=== PATIENT | male | born 1965 | race Caucasian/White ===

== ENCOUNTER 2024-12-26 13:55 | Outpatient (AMB) | payer MEDICAID, SELFPAY ==
[2024-12-26 14:32] VITALS: BP 125/70; PULSE 105; RESP 19; TEMP 36.8; O2SAT 96; BMI 30.7
--- NOTE | 2024-12-26 14:32 | PD.ORTHCLVIS ---
Vital signs 12/26/24 14:32 Height 1.89 m Height Method Stated Weight 109.769 kg Weight Measurement Method Stated by Patient BMI 30.7 BP 125/70 Blood Pressure Source Automatic Cuff Blood Pressure Location Right Upper Arm Position Sitting Respiration 19 Pulse 105 H Pulse Source Monitor Temp 98.3 F Temp Source Temporal Artery Scan Pulse Oximetry (%) 96 Oxygen Delivery Method Room Air Med/Allergies Allergies & Medications Allergies No Known Allergies Allergy (Verified 12/26/24 14:34) Medication Reconciliation gabapentin 300 mg capsule 300 mg PO QDAY 12/26/24 [History Confirmed 12/26/24] hydrocodone 5 mg-acetaminophen 325 mg tablet 1 tab PO BID PRN 12/26/24 [History Confirmed 12/26/24] meloxicam 15 mg tablet 15 mg PO QDAY 12/26/24 [History Confirmed 12/26/24] Exam Exam Breathing is nonlabored. Patient has a normal mood and affect. Bilateral extremities were evaluated and demonstrates sensation intact to light touch. Palpable pedal pulses are present. No significant edema is present. Bilateral hips were examined. The patient has no pain with log roll of the hips. Internal rotation to 30 degrees and external rotation to 30 degrees is painless. Negative FADIR. Left knee was examined today. The left knee is in reasonable alignment. Range of motion from 0-120 degrees. Knee is stable to varus and valgus as well as AP translation with <5mm. Patient has a negative McMurrays. There is no pain with patellofemoral compression and no crepitus noted. The knee is nontender to palpation. The right knee was also examined. The right knee is in varus alignment. Range of motion from 0-115 degrees. Knee is stable to varus and valgus as well as AP translation with <5mm. Patient has a negative McMurrays. There is no pain with patellofemoral compression and no crepitus noted. The knee is tender to palpation medially. Assessment and Plan Problem List (1) Pain in right knee: Status: Acute Plan: Patient is a 59-year-old male who has been wheelchair-bound for the last month. He has significant right knee arthritis but does not have any new x-rays. We will obtain weightbearing x-rays to better evaluate this. In addition, he has been to the ER in the past for right back pain. We will get an MRI to better evaluate this but the prior CT scan demonstrates that there is release moderate central canal stenosis. We will see him back after his imaging including his MRI (2) Spinal stenosis: Status: Acute Office Procedures GNS Level of Care Nursing/Assessment Patient Status: Initial/New Patient Nursing Assessment/Reassesment: Medication Reconciliation, Update PMH in EMR and Vital Signs Coordination of Care: Complex Care/Chronic Disease 5 or more, Education Complex Pt/Fam, Consent,records obtained, informed consent, Results/Orders obtained and Staff clarify orders New Patient Charge New Patient Point Assignment: 1104 New Patient Point Charge: DEPUTY ADMINISTRATOR Level 3 (0637-2128) [place] Intake Visit Data Collection New Patient or Established: New Patient (never been to [facility]) Reason for Visit:: RIGHT KNEE PAIN Eligibility Specialist Required: Yes Eligibility Specialist's name/title: RYAN CASEY MA Do You Feel Safe at Home: Yes Questionairres Past Medical History Past Medical History Have you ever been diagnosed with any of the following: Surgical History Appendectomy: Yes Subjective Immunization / Flu Flu Vaccine in the Last 12 Months: Yes Flu Vaccine Exclusion Criteria: Already Received History of Present Illness Chief complaint: Right knee and left back pain Patient is a 69-year-old male with a longstanding history of right knee pain that has worsened in the last month. He also reports that he has significant low back pain. He went to the ER several times and is on [place] and meloxicam. He reports That he has not tried any conservative treatment including any injections. We do not have any x-rays to review today. He has been in a wheelchair for the last month Review of Systems Review of Systems: All systems negative unless otherwise noted in HPI.
--- NOTE | 2024-12-26 14:54 | XR_ITS ---
Examination: Lumbar spine 3 views Technique one AP lateral coned lateral lower lumbar spine 3 views Exam date 9: October 28, 2024 1545 hours INDICATIONS: Low back pain radiating to the right leg 6 months FINDINGS: Moderate osteopenia No acute lumbar fracture Advanced degenerative disc disease L5-S1 with cortical erosions inferior endplate L5 superior endplate S1 Moderate lumbar spondylosis IMPRESSION: Advanced disc disease L5-S1 Suspicious for osteomyelitis discitis at the L5-S1 level, consider MRI lumbar spine pre and post contrast follow-up
--- NOTE | 2024-12-26 14:54 | XR_ITS ---
Examination: Bilateral knees 2 views AP oblique axial right knee 3 views TECHNIQUE: Bilateral AP knees standing single view, bilateral PA knees standing flexion single view Lateral oblique axial right knee 3 views total 5 views Exam date and time: January 25, 2025 1524 hours INDICATIONS: Chronic knee pain and swelling FINDINGS: Prominent osteopenia Severe narrowing [id number] medial joint spaces bilaterally Significant osteoarthritis lateral joint spaces Advanced narrowing right patellofemoral joint with chronic 10 mm lateral subluxation right patella IMPRESSION: Advanced osteoarthritis as above
--- NOTE | 2024-12-26 14:54 | XR_ITS ---
Examination:Left hip AP, lateral, AP pelvis 3 views Technique: Hip AP lateral, AP pelvis, 3 views Exam date and time:December 26, 2024 1542 hours INDICATIONS: Chronic left hip swelling and pain months FINDINGS: Moderate narrowing left hip joint No left hip fracture or dislocation Mild to moderate narrowing right hip joint Bones of the pelvis intact IMPRESSION: No acute hip or pelvic fracture Moderate narrowing left hip joint.
== END 2024-12-26 15:00 | disposition home or self-care (01) ==
LOC: HODSRG 13:55
PROVIDERS: PCP Physician Assistant; Referring Provider Physician Assistant; Supervising Provider Orthopaedic Surgery Adult Reconstructive Orthopaedic Surgery; Visit Provider Orthopaedic Surgery Adult Reconstructive Orthopaedic Surgery
DX: M25.561 Pain in right knee (principal); M17.11 Unilateral primary osteoarthritis, right knee; M48.00 Spinal stenosis, site unspecified; M25.852 Other specified joint disorders, left hip
CPT/HCPCS: 72100; 73502; 73564; 99203; G0463

== ENCOUNTER → 2025-01-05 | Outpatient (CLI) | payer MEDICAID, SELFPAY ==
--- NOTE | 2025-01-05 12:30 | XR_ITS ---
Examination: MRI lumbar spine without contrast Date and time of exam: January 05, 2025 1233 hours INDICATIONS: Low back pain beginning one year ago pain with walking Technique: Multiple MRI axial and sagittal sections lumbar spine. Sagittal T2-weighted images, TR 3500, TE 118 T1 weighted transverse sections, TR 688 T8.5, T2-weighted sagittal sections T1 weighted sagittal sections TR 621, TE 30 T2 axial sections, TR 4, 190, TE 84. Findings: Advanced disc narrowing L5-S1 L5 vertebral body and S1 vertebral body show abnormal signal especially L5 No acute lumbar fracture Diffuse lumbar disc desiccation L5-S1 5 mm central lumbar disc bulge extending to the foraminal regions with moderate bilateral L5 ganglionic compression L4-L5 4 mm central lumbar disc bulge More cephalad levels unremarkable IMPRESSION: This patient should return for MRI lumbar spine images post intravenous contrast to confirm osteomyelitis discitis at the L5-S1 level Spinal stenosis as above
== END | disposition home or self-care (01) ==
LOC: SMRI 11:52
PROVIDERS: Referring Provider Orthopaedic Surgery Adult Reconstructive Orthopaedic Surgery; Visit Provider Orthopaedic Surgery Adult Reconstructive Orthopaedic Surgery
DX: M46.27 Osteomyelitis of vertebra, lumbosacral region (principal); M46.46 Discitis, unspecified, lumbar region; M48.07 Spinal stenosis, lumbosacral region
CPT/HCPCS: 72148

== ENCOUNTER 2025-01-07 21:14 | Emergency (ER) | payer MEDICAID, SELFPAY ==
[2025-01-07 21:16] VITALS: BMI 29.8
[2025-01-07 21:28] VITALS: BP 123/66; PULSE 97; RESP 18; TEMP 36.9; O2SAT 95
--- NOTE | 2025-01-07 21:41 | PD.EDBACK ---
ED Back Injury Pain RME/HPI General Chief Complaint: Back Pain/Injury Stated Complaint: joint and back pain Time Seen by Provider: 01/07/25 21:19 Source: patient, family, RN notes reviewed and old records reviewed Arrival date/time: 01/07/25 21:14 Mode of arrival: wheelchair Limitations: no limitations RME / HPI RME / HPI Narrative: 59yom presents to ED for left lower back/hip pain and right knee pain x2 months. No recent fall or injury. 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 Patient has been evaluated in multiple EDs for same complaint. Patient had f/u with Dr. Salcedo on 12/26. MRI l-spine done (patient gets results next Thursday) and repeat knee xrays showing OA. Plan is for R TKR in near future. No LE weakness, numbness/tingling or bowel/bladder incontinence reported. Patient has been taking mobic and norco but ran out of medications. Related Data Home Medications ?Medication ?Instructions ?Recorded ?Confirmed gabapentin 300 mg capsule 300 mg PO QDAY 12/26/24 12/26/24 hydrocodone 5 mg-acetaminophen 325 1 tab PO BID PRN 12/26/24 12/26/24 mg tablet meloxicam 15 mg tablet 15 mg PO QDAY 12/26/24 12/26/24 Previous Rx's ?Medication ?Instructions ?Recorded acetaminophen 500 mg tablet 1,000 mg (2 x 500 mg) PO Q6H PRN 01/07/25 (Tylenol Extra Strength) pain #60 tabs ketorolac 10 mg tablet 10 mg PO Q6H PRN pain #30 tabs 01/07/25 lidocaine 5 % topical patch 1 patch topical QDAY PRN pain #15 01/07/25 ea methocarbamol 500 mg tablet 1,000 mg (2 x 500 mg) PO Q8H PRN 01/07/25 pain #30 tabs Allergies Allergy/AdvReac Type Severity Reaction Status Date / Time No Known Allergies Allergy Verified 01/07/25 21:23 Review of Systems Review of Systems Systems Reviewed: All systems reviewed, normal except as documented Constitutional Constitutional: Denies chills and Denies fever(s) Gastrointestinal Gastrointestinal: Denies abdominal pain, Denies fecal incontinence, Denies nausea and Denies vomiting Genitourinary Genitourinary: Denies urinary incontinence Musculoskeletal Musculoskeletal: Reports arthralgias, Reports back pain, Denies deformity, Reports joint swelling, Reports limited range of motion, Denies numbness and Denies tingling Neurologic Neurologic: Denies localized weakness, Denies numbness and Denies tingling Past Medical History Surgical History OTHER SURGICAL HX: Right inguinal hernia repair Social History SMOKING STATUS: Never smoker SUBSTANCE USE: does not use ALCOHOL: Never Past Medical History Comments PMH COMMENT: Osteoarthritis ED Exam General Limitations: Present no limitations General appearance: Present alert and in no apparent distress Head Head exam: Present atraumatic and normocephalic Eye Eye exam: Present normal appearance, PERRL and EOMI ENT ENT exam: Present normal exam and mucous membranes moist Neck Neck exam: Present normal inspection and full ROM Chest Chest inspection: Present normal inspection and symmetric chest wall rise Respiratory Respiratory exam: Present normal lung sounds bilaterally; Absent respiratory distress Cardiovascular Cardiovascular exam: Present regular rate and normal rhythm Extremities Exam Extremities exam: Present other (R knee tenderness, mild swelling. Limited ROM 2/2 pain. DP pulses and sensation intact. Mild BLE edema) Back Exam Back exam: Present paraspinal tenderness (left lumbar); Absent vertebral tenderness Neurological Exam Neurological exam: Present alert, oriented X3 and other (No saddle anesthesia); Absent motor sensory deficit Psychiatric Psychiatric exam: Present normal affect and normal mood Skin Skin exam: Present warm, dry, intact and normal color Course Quality Measures none Orders Category Date Time Status Dexamethasone Inj [Decadron Inj] Med 01/07/25 22:31 Discontinued 10 mg IM X1 ONE HYDROcodone/APAP 10/325 [Roy 10/325] Med 01/07/25 21:42 Discontinued 1 tab PO X1 ONE Ketorolac Inj [Toradol Inj] Med 01/07/25 21:42 Discontinued 30 mg IM X1 ONE Vital Signs Vital signs: Vital Signs Temperature 98.5 F 01/07/25 21:28 Pulse Rate 97 01/07/25 21:28 Respiratory Rate 18 01/07/25 21:28 Blood Pressure 123/66 01/07/25 21:28 Pulse Oximetry (%) 95 01/07/25 21:28 Oxygen Delivery Method Room Air 01/07/25 21:28 Back Pain / Injury MDM Narrative MDM Narrative:: 59yom presents to ED for left lower back/hip pain and right knee pain x2 months. No recent fall or injury. 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 Patient has been evaluated in multiple EDs for same complaint. Patient had f/u with Dr. Salcedo on 12/26. MRI l-spine done (patient gets results next Thursday) and repeat knee xrays showing OA. Plan is for R TKR in near future. No LE weakness, numbness/tingling or bowel/bladder incontinence reported. Patient has been taking mobic and norco but ran out of medications. Patient is neurovascularly intact. Encouraged f/u with Dr. Salcedo as scheduled, appt is in 3 days. Recommended rest, nsaid, muscle relaxer, ice/heat application prn. Compression stockings for mild BLE edema. Stable for dc, RTED precautions given. Patient data External records reviewed:: Other (specify) (Ortho clinic visit 12/26/24 for right knee pain) Clinical information provided by:: patient and spouse Social determinants that could affect healthcare access:: none Patient has the following chronic illnesses:: OA How is presenting disease/condition affected by chronic disease/condition?: caused by Evaluation data The following diagnostics were reviewed and interpreted by me:: other (specify) (none) Lab and/or radiology exams considered but not ordered:: knee xrays: patient recently had imaging at ortho clinic Interpretation Summary: none Medications / Prescriptions Medications or Prescriptions considered but not ordered:: None Medication administrations:: Medication Administration History Discontinued Medications Hydrocodone Bitart/Acetaminophen (Hydrocodone/Apap 10/325 Tab) 1 tab PO X1 ONE Stop: 01/07/25 21:43 Last Admin: 01/07/25 22:36 Dose: 1 tab Documented By: JD Dexamethasone Sodium Phosphate (Dexamethasone Sod Phos Inj 10 Mg/Ml Vial) 10 mg IM X1 ONE Stop: 01/07/25 22:32 Last Admin: 01/07/25 22:36 Dose: 10 mg Documented By: JD Ketorolac Tromethamine (Ketorolac Inj 60 Mg/2 Ml Vial) 30 mg IM X1 ONE Stop: 01/07/25 21:43 Last Admin: 01/07/25 22:36 Dose: 30 mg Documented By: JD Above medications administered in ED Consultations Consultation(s) initiated? (list below): No Diagnosis Differential diagnosis back pain/injury: other (Chronic joint pain, gout, arthritis, osteoarthritis, septic joint, strain, sprain, contusion) Most likely diagnosis given after review of the tests above:: Arthralgias Admission Indicated Admission indicated?: not indicated Admission Request Was there a request for admission?: No Disposition Plan Disposition Plan: Discharge Discharge Attestation Discharge Attestation: The patient and all family members were given an opportunity to ask questions and understood the discharge instructions. Discharge instructions specifically effects, indications for sooner follow up or return to the emergency department, and the expected course of current diagnosis. Patient condition: Stable Discharge Plan Plan Patient Disposition: HOME (Self Care) Patient condition on transfer: Stable Prescriptions/Referrals Prescriptions/Med Rec: New ketorolac 10 mg tablet 10 mg PO Q6H PRN (Reason: pain) Qty: 30 0RF Rx Instructions: maximum total duration of 5 days from all oral, intranasal, or parenteral formulations methocarbamol 500 mg tablet 1,000 mg PO Q8H PRN (Reason: pain) Qty: 30 0RF acetaminophen [Tylenol Extra Strength] 500 mg tablet 1,000 mg PO Q6H PRN (Reason: pain) Qty: 60 0RF lidocaine 5 % adhesive patch,medicated 1 patch topical QDAY PRN (Reason: pain) Qty: 15 0RF Rx Instructions: leave on most painful area for up to 12 hrs No Action meloxicam 15 mg tablet 15 mg PO QDAY gabapentin 300 mg capsule 300 mg PO QDAY hydrocodone-acetaminophen 5-325 mg tablet 1 tab PO BID PRN Referrals: No Primary/Family,Physician [Primary Care Provider] - In 1 week David Salcedo MD [Physician] - 01/10/25 (as scheduled) Problem List Clinical Impression: Knee pain, right, Hip pain, left, Low back pain Patient/Caregiver Discharge Instructions Education Materials: ED Arthralgia Print Language: Algerian Stand Alone Forms: Seema Award Info., Patient Portal Info Letter PA/GABRIELLE Supervising Physician PA/GABRIELLE Supervising Physician: Evelyn
[2025-01-07] MEDS: HYDROcodone/APAP 10/325 TAB PO (22:36)
[2025-01-07] MEDS: DEXAMETHASONE SOD PHOS INJ 10 MG/ML VIAL IM (22:36)
[2025-01-07] MEDS: KETOROLAC INJ 60 MG/2 ML VIAL 30 MG IM (22:36)
== END 2025-01-07 23:13 | disposition home or self-care (01) ==
PROVIDERS: Emergency Provider Emergency Medicine
DX: M25.561 Pain in right knee (principal); M25.551 Pain in right hip
CPT/HCPCS: 96372; 99283; J1100; J1885; A9270

== ENCOUNTER 2025-01-10 12:55 | Outpatient (AMB) | payer MEDICAID, SELFPAY ==
[2025-01-10 13:09] VITALS: BP 122/63; PULSE 102; RESP 20; TEMP 36.7; O2SAT 93
--- NOTE | 2025-01-10 13:09 | ORTHONT_ITS ---
Vital signs 01/10/25 13:09 BP 122/63 Blood Pressure Source Automatic Cuff Blood Pressure Location Right Upper Arm Position Sitting Respiration 20 Pulse 102 H Pulse Source Monitor Temp 98.0 F Temp Source Temporal Artery Scan Pulse Oximetry (%) 93 L Oxygen Delivery Method Room Air Comment WHEELCHAIR BOUND Med/Allergies Allergies & Medications Allergies No Known Allergies Allergy (Verified 01/10/25 13:10) Medication Reconciliation gabapentin 300 mg capsule 300 mg PO QDAY 12/26/24 [History Confirmed 01/10/25] hydrocodone 5 mg-acetaminophen 325 mg tablet 1 tab PO BID PRN 12/26/24 [History Confirmed 01/10/25] meloxicam 15 mg tablet 15 mg PO QDAY 12/26/24 [History Confirmed 01/10/25] acetaminophen 500 mg tablet (Tylenol Extra Strength) 1,000 mg (2 x 500 mg) PO Q6H PRN pain #60 tabs 01/07/25 [Rx Confirmed 01/10/25] ketorolac 10 mg tablet 10 mg PO Q6H PRN pain #30 tabs 01/07/25 [Rx Confirmed ] lidocaine 5 % topical patch 1 patch topical QDAY PRN pain #15 ea 01/07/25 [Rx Confirmed 01/10/25] methocarbamol 500 mg tablet 1,000 mg (2 x 500 mg) PO Q8H PRN pain #30 tabs 01/07/25 [Rx Confirmed 01/10/25] Exam Exam Breathing is nonlabored. Patient has a normal mood and affect. Bilateral extremities were evaluated and demonstrates sensation intact to light touch. Palpable pedal pulses are present. No significant edema is present. Bilateral hips were examined. The patient has no pain with log roll of the hips. Internal rotation to 30 degrees and external rotation to 30 degrees is painless. Negative FADIR. Left knee was examined today. The left knee is in reasonable alignment. Range of motion from 0-120 degrees. Knee is stable to varus and valgus as well as AP translation with <5mm. Patient has a negative McMurrays. There is no pain with patellofemoral compression and no crepitus noted. The knee is nontender to palpa tion. The right knee was also examined. The right knee is in varus alignment. Range of motion from 0-115 degrees. Knee is stable to varus and valgus as well as AP translation with <5mm. Patient has a negative McMurrays. There is no pain with patellofemoral compression and no crepitus noted. The knee is tender to palpation medially. He is in a wheelchair because of the back pain. MRI of the lumbar spine demonstrates significant spinal stenosis at multiple levels. Xrays demonstrate bilateral knee arthritis Assessment and Plan Problem List (1) Spinal stenosis: Status: Acute (2) Pain in right knee: Status: Acute Plan: Patient is a 59-year-old male who has been wheelchair-bound for the last month. He has significant Bilateral knee arthritis. We suspect that he has severe spinal stenosis and we will an MRI which confirms that he has multiple levels of critical canal stenosis. We discussed warning signs including urinary and bowel incontinence as far as further weakness. I am actually very much concerned regarding his spine. He is now in a wheelchair and is progressively getting weaker. He will need a referral to a spine surgeon. We have contacted his primary care provider already to let them know that he has severe critical canal stenosis and he will likely need spine surgery. We can address his knee after his spine is done. He reports his knee pain is not nothing compared to his spine He has been to the ER multiple times in the past for his back pain. We discussed we could do a cortisone injection but that his back is actually the most pressing issue right now as she has had multiple ER This is back and is causing him to be wheelchair-bound. Office Procedures GNS Level of Care Nursing/Assessment Patient Status: Established Patient Nursing Assessment/Reassesment: Medication Reconciliation, Update PMH in EMR and Vital Signs Coordination of Care: Complex Care and Chronic Disease 1-5, Education Complex Pt/Fam, Consent,records obtained, informed consent, Results/Orders obtained and Staff clarify orders Special Needs: Language special needs Established Patient Charge Established Patient Point Assignment: 95 Established Patient Point Charge: EP Level 3 (80-115) MA Intake Visit Data Collection New Patient or Established: Established Patient (seen at [facility] within 3 years) Reason for Visit:: F/U XRAYS & MRI Seen by Clinical Staff ONLY (RN/MA): No Verbal consent obtained for Telemed visit?: No Control Panel Operator Crude Unit Required: No PCP or OBGYN visit in last 3 months: Yes Hx Now: No Do You Feel Safe at Home: Yes Authorities Contacted: N/A Questionairres Past Medical History Past Medical History Have you ever been diagnosed with any of the following: Surgical History Appendectomy: Yes Subjective Visit Visit for: follow up visit and x-rays Immunization / Flu Flu Vaccine in the Last 12 Months: No Flu Vaccine Exclusion Criteria: No Exclusion Criteria History of Present Illness Chief complaint: F/U XRAYS & MRI Patient is a 69-year-old male with a longstanding history of right knee pain that has worsened in the last month. He also reports that he has significant low back pain. He went to the ER several times and is on [place] and meloxicam. He reports That he has not tried any conservative treatment including any injections. He has been in a wheelchair for the last month. Personal History Occupation: DISABLED BMI Counceling provided: No Pain Pain level (0-10): 10 Pain duration: ALL DAY Pain location: posterior Pain quality: sharp Pain timing: night, increases with activity and stairs Ambulatory data Ambulatory device: none Treatments Improvement with previous injections: No Improvement with PT: No Improvement with NSAIDS: no Review of Systems Review of Systems: All systems negative unless otherwise noted in HPI.
== END 2025-01-10 13:38 | disposition home or self-care (01) ==
LOC: HODSRG 12:55
PROVIDERS: PCP Physician Assistant; Referring Provider Physician Assistant; Supervising Provider Orthopaedic Surgery Adult Reconstructive Orthopaedic Surgery; Visit Provider Orthopaedic Surgery Adult Reconstructive Orthopaedic Surgery
DX: M17.0 Bilateral primary osteoarthritis of knee (principal); M48.061 Spinal stenosis, lumbar region without neurogenic claudication; Z99.3 Dependence on wheelchair; M25.561 Pain in right knee
CPT/HCPCS: 99213; G0463

== ENCOUNTER 2025-05-04 13:50 | Outpatient (AMB) | payer MEDICAID, SELFPAY ==
--- NOTE | 2025-05-04 14:11 | ORTHONT_ITS ---
Vital signs 05/04/25 14:14 Height 1.89 m Height Method Stated Weight 89.046 kg Weight Measurement Method Standing Scale BMI 24.9 BP 125/77 Blood Pressure Source Automatic Cuff Blood Pressure Location Left Upper Arm Position Sitting Respiration 18 Pulse 79 Pulse Source Monitor Temp 96.9 F Temp Source Temporal Artery Scan Pulse Oximetry (%) 96 Oxygen Delivery Method Room Air Med/Allergies Allergies & Medications Allergies No Known Allergies Allergy (Verified 05/04/25 14:15) Medication Reconciliation gabapentin 300 mg capsule 300 mg PO QDAY 12/26/24 [History Confirmed 05/04/25] hydrocodone 5 mg-acetaminophen 325 mg tablet 1 tab PO BID PRN 12/26/24 [History Confirmed 05/04/25] meloxicam 15 mg tablet 15 mg PO QDAY 12/26/24 [History Confirmed 05/04/25] acetaminophen 500 mg tablet (Tylenol Extra Strength) 1,000 mg (2 x 500 mg) PO Q6H PRN pain #60 tabs 01/07/25 [Rx Confirmed 05/04/25] ketorolac 10 mg tablet 10 mg PO Q6H PRN pain #30 tabs 01/07/25 [Rx Confirmed 05/04/25] lidocaine 5 % topical patch 1 patch topical QDAY PRN pain #15 ea 01/07/25 [Rx Confirmed 05/04/25] methocarbamol 500 mg tablet 1,000 mg (2 x 500 mg) PO Q8H PRN pain #30 tabs 01/07/25 [Rx Confirmed 05/04/25] Exam Exam Breathing is nonlabored. Patient has a normal mood and affect. Bilateral extremities were evaluated and demonstrates sensation intact to light touch. Palpable pedal pulses are present. No significant edema is present. Bilateral hips were examined. The patient has no pain with log roll of the hips. Internal rotation to 30 degrees and external rotation to 30 degrees is painless. Negative FADIR. Left knee was examined today. The left knee is in reasonable alignment. Range of motion from 0-120 degrees. Knee is stable to varus and valgus as well as AP translation with <5mm. Patient has a negative McMurrays. There is no pain with patellofemoral compression and no crepitus noted. The knee is nontender to palpation. The right knee was also examined. The right knee is in varus alignment. Range of motion from 0-115 degrees. Knee is stable to varus and valgus as well as AP translation with <5mm. Patient has a negative McMurrays. There is no pain with patellofemoral compression and no crepitus noted. The knee is tender to palpation medially. He is in a wheelchair because of the back pain. MRI of the lumbar spine demonstrates significant spinal stenosis at multiple levels. Xrays demonstrate bilateral knee arthritis Assessment and Plan Problem List (1) Spinal stenosis: Status: Acute (2) Pain in right knee: Status: Acute Plan: Patient is a 59-year-old male who has significant bilateral knee pain. Recommend knee cortisone injection as patient would like to proceed with conservative treatment at this time. The risks and benefits of the procedure were reviewed with the patient and patient gave verbal consent to continue with the procedure. Procedure: performed by Dr. Salcedo Using sterile technique the left knee was thoroughly prepped with alcohol, and approximately 1 cc of Depo-Medrol 80mg/mL and 4 cc of 0.2% ropivacaine was injected without resistance into the medial tibial femoral joint space. The patient tolerated the procedure. Recommend knee cortisone injection as patient would like to proceed with conservative treatment at this time. The risks and benefits of the procedure we re reviewed with the patient and patient gave verbal consent to continue with the procedure. Procedure: performed by Dr. Salcedo Using sterile technique the Right knee was thoroughly prepped with alcohol, and approximately 1 cc of Depo-Medrol 80mg/mL and 4 cc of 0.2% ropivacaine was injected without resistance into the medial tibial femoral joint space. The patient tolerated the procedure. Office Procedures GNS Level of Care Nursing/Assessment Patient Status: Established Patient Nursing Assessment/Reassesment: Medication Reconciliation, Update PMH in EMR and Vital Signs Coordination of Care: Complex Care and Chronic Disease 1-5, Education Complex Pt/Fam, Consent,records obtained, informed consent, Results/Orders obtained and Staff clarify orders Special Needs: Language special needs Established Patient Charge Established Patient Point Assignment: 95 Established Patient Point Charge: EP Level 3 (80-115) Medication Given Medication Given Medication Given: No Documented Dose Given: 1 Route: Infiitration Medication Given Medication Given Medication Given: Yes Documented Dose Given: 1 Route: Infiitration Medication Given Medication Given Medication Given: Yes Documented Dose Given: 4 Route: Infiitration Medication Given Medication Given Medication Given: Yes Documented Dose Given: 4 Route: Infiitration Office Meds methylprednisolone acetate 80 mg/mL suspension for injection Performing Provider: David Salcedo MD Performing Location: [facility] Administered by: David Salcedo MD on 05/04/25 14:39 Dose Route Admin Location Dispensed Lot Number Expiration Date [facility] [employer] 80 mg intra-articular 1 mL [id number] 02/10/27 [address]-5 [employer] methylprednisolone acetate 80 mg/mL suspension for injection Performing Provider: David Salcedo MD Performing Location: [facility] Administered by: David Salcedo MD on 05/04/25 14:39 Dose Route Admin Location Dispensed Lot Number Expiration Date [facility] [employer] 80 mg intra-articular 1 mL [id number] 02/10/27 [address]-1 [employer] ropivacaine (PF) 2 mg/mL (0.2 %) injection solution Performing Provider: David Salcedo MD Performing Location: [facility] Administered by: David Salcedo MD on 05/04/25 14:39 Dose Route Admin Location Dispensed Lot Number Expiration Date [facility] [employer] 20 mL Infiltration 20 mL [id number] 07/13/26 62765-442-46 [facility] ropivacaine (PF) 2 mg/mL (0.2 %) injection solution Performing Provider: David Salcedo MD Performing Location: [facility] Administered by: David Salcedo MD on 05/04/25 14:39 Dose Route Admin Location Dispensed Lot Number Expiration Date [facility] [employer] 20 mL Infiltration 20 mL [id number] 07/13/26 39026-750-39 [facility] [place] Intake Visit Data Collection New Patient or Established: Established Patient (seen at [facility] within 3 years) Reason for Visit:: F/U XRAYS & MRI Seen by Clinical Staff ONLY (RN/MA): No Verbal consent obtained for Telemed visit?: No Retirement Plan Counselor Required: No PCP or OBGYN visit in last 3 months: Yes Hx Now: No Do You Feel Safe at Home: Yes Authorities Contacted: N/A Questionairres Past Medical History Past Medical History Have you ever been diagnosed with any of the following: Surgical History Appendectomy: Yes Subjective Visit Visit for: follow up visit and x-rays Immunization / Flu Flu Vaccine in the Last 12 Months: No Flu Vaccine Exclusion Criteria: No Exclusion Criteria History of Present Illness Chief complaint: F/U XRAYS & MRI Daniel? is a pleasant 60-year-old male with bilateral knee pain and bilateral knee arthritis. He recently had osteomyelitis which we diagnosed. 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 He reports he is now doing very well. He has no back pain and reports that only his knees hurt. He would like bilateral knee injections today. Personal History Occupation: DISABLED BMI Counceling provided: No Pain Pain level (0-10): 4 Pain duration: CONSTANT Pain location: anterior Pain quality: aching Ambulatory data Ambulatory device: walker Treatments Improvement with previous injections: No Improvement with PT: No Improvement with NSAIDS: no Review of Systems Review of Systems: All systems negative unless otherwise noted in HPI.
[2025-05-04 14:14] VITALS: BP 125/77; PULSE 79; RESP 18; TEMP 36.1; O2SAT 96; BMI 24.9
== END 2025-05-04 14:38 | disposition home or self-care (01) ==
LOC: HODSRG 13:50
PROVIDERS: PCP Physician Assistant; Referring Provider Physician Assistant; Supervising Provider Orthopaedic Surgery Adult Reconstructive Orthopaedic Surgery; Visit Provider Orthopaedic Surgery Adult Reconstructive Orthopaedic Surgery
DX: M25.562 Pain in left knee (principal); M25.561 Pain in right knee; M17.0 Bilateral primary osteoarthritis of knee; M48.061 Spinal stenosis, lumbar region without neurogenic claudication
CPT/HCPCS: 20610; 99213; J1010; J2795; G0463

== ENCOUNTER → 2025-06-21 | Outpatient (CLI) | payer MEDICAID, SELFPAY ==
--- NOTE | 2025-06-21 | XR_ITS ---
EXAMINATION: Sinus series 2 views TECHNIQUE: Fuentes lateral sinus series 2 views Date and time: April 21, 2025, 1134 hours INDICATIONS: Preop MRI study FINDINGS: Large posterior craniotomy defect with orthopedic hardware Orbital rims intact Prominent frontal sinusitis IMPRESSION: Large right posterior craniotomy defect
--- NOTE | 2025-06-21 10:00 | XR_ITS ---
Examination: MRI lumbar spine without contrast Date and time of exam: June 21, 2025, 1154 hours, comparison January 05, 2025 INDICATIONS: Sudden onset low back pain beginning December 2024, abnormal signal L5-S1 MR lumbar spine January 05, 2025 Technique: Multiple MRI axial and sagittal sections lumbar spine. Sagittal T2-weighted images, TR 3500, TE 118 T1 weighted transverse sections, TR 688 T8.5, T2-weighted sagittal sections T1 weighted sagittal sections TR 621, TE 30 T2 axial sections, TR 4, 190, TE 84. Findings: Decrease in abnormal signal at the L5-S1 level Grade 1 anterolisthesis L5 on S1 Advanced disc narrowing L2-L3, L3-L4, L5-S1 The grade 1 anterolisthesis L5 on S1 produces moderate left severe right L5 ganglionic compression L4-L5 6 mm central lumbar disc bulge L3-L4 no disc protrusion L2-L3 no disc protrusion L1-L2 no disc protrusion IMPRESSION: L5-S1 grade 1 anterolisthesis produces moderate left severe right L5 ganglionic compression L4-L5 6 mm central lumbar disc bulge
== END | disposition home or self-care (01) ==
LOC: SMRI 09:45
PROVIDERS: PCP Nurse Practitioner Family; Referring Provider Orthopaedic Surgery Adult Reconstructive Orthopaedic Surgery; Visit Provider Orthopaedic Surgery Adult Reconstructive Orthopaedic Surgery
DX: M51.370 Other intervertebral disc degeneration, lumbosacral region with discogenic back pain only (principal); M51.360 Other intervertebral disc degeneration, lumbar region with discogenic back pain only; G95.20 Unspecified cord compression; Z01.818 Encounter for other preprocedural examination
CPT/HCPCS: 70210; 72148

== ENCOUNTER 2025-08-03 12:48 | Outpatient (AMB) | payer MEDICAID, SELFPAY ==
[2025-08-03 13:09] VITALS: BP 123/81; PULSE 64; RESP 19; TEMP 36.3; O2SAT 96; BMI 26.8
--- NOTE | 2025-08-03 13:09 | PD.ORTHCLVIS ---
Vital signs 08/03/25 13:09 Height 1.89 m Height Method Stated Weight 95.906 kg Weight Measurement Method Standing Scale BMI 26.8 BP 123/81 Blood Pressure Source Automatic Cuff Blood Pressure Location Left Upper Arm Position Sitting Respiration 19 Pulse 64 Pulse Source Monitor Temp 97.3 F Temp Source Temporal Artery Scan Pulse Oximetry (%) 96 Oxygen Delivery Method Room Air Med/Allergies Allergies & Medications Allergies No Known Allergies Allergy (Verified 08/03/25 13:10) Exam Exam Breathing is nonlabored. Patient has a normal mood and affect. Bilateral extremities were evaluated and demonstrates sensation intact to light touch. Palpable pedal pulses are present. No significant edema is present. Bilateral hips were examined. The patient has no pain with log roll of the hips. Internal rotation to 30 degrees and external rotation to 30 degrees is painless. Negative FADIR. Left knee was examined today. The left knee is in reasonable alignment. Range of motion from 0-120 degrees. Knee is stable to varus and valgus as well as AP translation with <5mm. Patient has a negative McMurrays. There is no pain with patellofemoral compression and no crepitus noted. The knee is nontender to palpation. The right knee was also examined. The right knee is in varus alignment. Range of motion from 0-115 degrees. Knee is stable to varus and valgus as well as AP translation with <5mm. Patient has a negative McMurrays. There is no pain with patellofemoral compression and no crepitus noted. The knee is tender to palpation medially. He is in a wheelchair because of the back pain. MRI of the lumbar spine demonstrates significant spinal stenosis at multiple levels. Xrays demonstrate bilateral knee arthritis with complete joint space narrowing bilaterally. There is varus deformity and varus arthritis of significant severity Assessment and Plan Problem List (1) Spinal stenosis: Status: Acute (2) Pain in right knee: Status: Acute Plan: Patient is a 59-year-old male who has significant bilateral knee pain. 1. Bilateral knee pain: He has received one injection in each knee, which provided relief for approximately one week. He has been managing his pain with tramadol, taking one tablet daily. He has also previously used meloxicam and Toradol. Despite these interventions, he has not engaged in physical therapy or home exercises. His mobility is limited, requiring the use of a walker, and he can only ambulate for a distance of 100 feet. He believes that addressing the issue in his right knee will not resolve the problem in his left knee. A comprehensive discussion regarding the surgical procedure for the right knee was conducted. 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 A detailed pamphlet about knee replacement, translated into [place]ish, was provided. The patient will receive a form for cardiology clearance, which needs to be signed to proceed with the surgery. The procedure will take approximately 1 hour. No further injections will be administered at this time. The nature and purpose of the total knee replacement, alternative method(s) of treatment, the material risks involved, and the possibility of complications were fully explained to the patient. The patient does NOT have any of the following contraindications to TKA: - Active infection of the knee joint, OR - Active systemic bacteremia, OR - Active skin infection or open wound at surgical site, OR - Neuropathic arthritis, OR - Severe, rapidly progressive neurological disease, OR - Severe medical condition that makes risks of surgery outweigh the potential benefit The patient was told the most common risks and complications associated with a total knee replacement include, but are not limited to: blood clots in the leg, fatal pulmonary embolism, dislocation of the prosthesis, intraoperative and postoperative fractures of the femur or tibia, infection, failure of the prosthesis or grafting materials, complications from anesthesia, reactions to blood transfusions, postoperative leg length inequality, instability of the knee replacement, nerve damage or injury, vascular injury, delayed wound healing, infection, other injury or even . In addition, there are risks associated with anesthesia given during this operation. Also, the patient was told that after undergoing a total knee replacement there may still be persistent pain or disability. The patient was informed that the success of this operation in part depends upon the mechanical devices which are going to be implanted and that these devices can fail or malfunction, and may need to be repaired or replaced and there are no guarantees as to the longevity of this device or its parts and that it or its parts could fail prematurely. The patient was also notified that during the course of surgery, there may be a need to use bone graft from donors, and that any bone graft used will be carefully screened for communicable diseases, including AIDS, hepatitis, Gus-Creutzfeldt, or other diseases, but despite the screening procedures, there is a small chance that they could contract one of these diseases. Finally, the patient was asked to follow completely and fully with all advice and recommended treatments, and that recovery and ultimate outcome are affected by their compliance with recommended treatment. We discussed the risks, benefits and treatment alternatives, and the patient is interested in proceeding with surgery. We will try to set this up as expeditiously as possible. Office Procedures GNS Level of Care Nursing/Assessment Patient Status: Established Patient Nursing Assessment/Reassesment: Medication Reconciliation, Update PMH in EMR and Vital Signs Coordination of Care: Complex Care and Chronic Disease 1-5, Education Complex Pt/Fam, Consent,records obtained, informed consent, Results/Orders obtained and Staff clarify orders Established Patient Charge Established Patient Point Assignment: 95 Established Patient Point Charge: EP Level 3 (80-115) MA Intake Visit Data Collection New Patient or Established: Established Patient (seen at [facility] within 3 years) Seen by Clinical Staff ONLY (RN/MA): No Verbal consent obtained for Telemed visit?: No Health Education Coordinator Required: No PCP or OBGYN visit in last 3 months: Yes Hx Now: No Do You Feel Safe at Home: Yes Authorities Contacted: N/A Questionairres Past Medical History Past Medical History Have you ever been diagnosed with any of the following: Surgical History Appendectomy: Yes Subjective Visit Visit for: follow up visit, knee (BILATERAL ) and injections Immunization / Flu Flu Vaccine in the Last 12 Months: No Flu Vaccine Exclusion Criteria: No Exclusion Criteria History of Present Illness Chief complaint: BILATERAL KNEE INJ FU HISTORY OF PRESENT ILLNESS IDavid, have obtained verbal consent from the patient, to be recorded during this encounter which may include, but not limited to, medical history, examination, treatment plans, and relevant health information.? Patient was informed that recording will be read and reviewed by myself before inclusion in the medical chart. The patient is a 60-year-old male who presents for evaluation of bilateral knee pain with the right being worse than the left. He has received one injection in each knee, which provided relief for approximately one week. He has been managing his pain with tramadol, taking one tablet daily. He has also previously used meloxicam and Toradol. Despite these interventions, he has not engaged in physical therapy or home exercises. His mobility is limited, requiring the use of a walker, and he can only ambulate for a distance of 100 feet. He believes that addressing the issue in his right knee will not resolve the problem in his left knee. He reports no significant medical issues. He recently visited a switch operators supervisor and received clearance paperwork. He has an appointment scheduled for 08/2025. Personal History Occupation: DISABLED BMI Counceling provided: No Pain Pain level (0-10): 7 (LEFT WORSE THAN RIGHT) Pain duration: CONSTANT Pain location: anterior Pain quality: aching Ambulatory data Ambulatory device: walker Treatments Improvement with previous injections: No Improvement with PT: No Improvement with NSAIDS: no Review of Systems Review of Systems: All systems negative unless otherwise noted in HPI.
== END 2025-08-03 13:44 | disposition home or self-care (01) ==
LOC: HODSRG 12:48
PROVIDERS: PCP Physician Assistant; Referring Provider Physician Assistant; Supervising Provider Orthopaedic Surgery Adult Reconstructive Orthopaedic Surgery; Visit Provider Orthopaedic Surgery Adult Reconstructive Orthopaedic Surgery
DX: M25.562 Pain in left knee (principal); M25.561 Pain in right knee; M48.00 Spinal stenosis, site unspecified
CPT/HCPCS: 99213; G0463

== ENCOUNTER → 2025-09-05 | Outpatient (CLI) | payer MEDICAID, SELFPAY ==
--- NOTE | 2025-09-05 14:00 | XR_ITS ---
Examination: CT right lower extremity, without contrast. 2-D sagittal reconstructions. 2-D coronal reconstructions. 3-D reconstructions. Date and time of exam: September 05, 2025, 1420 hours INDICATIONS: Diagnosis unilateral primary osteoarthritis right knee, right knee pain 2 years CTDI: vol (mGy): 11.4 DLP: (mGycm): 1020 Technique: Multiple 1.25 mm axial sections of the right lower extremity without intravenous contrast have been obtained. 2-D sagittal and coronal reconstructions have been obtained. 3-D reconstructions have been obtained. Low dose protocols were performed. One or more of the following dose reduction techniques were used; automated exposure control, adjustment of the mA and/or KV according to patient size, use of iterative reconstruction technique. Findings: Severe osteopenia Moderate narrowing right hip joint No right hip fracture or dislocation Severe tricompartment osteoarthritis Large erosive areas involving the medial lateral tibial plateau, coronal image 155 Chronic lateral subluxation of the patella at least 28 mm IMPRESSION: Severe right knee tricompartment osteoarthritis
== END | disposition home or self-care (01) ==
LOC: CCTX 13:50
PROVIDERS: PCP Nurse Practitioner Family; Referring Provider Orthopaedic Surgery Adult Reconstructive Orthopaedic Surgery; Visit Provider Orthopaedic Surgery Adult Reconstructive Orthopaedic Surgery
DX: M17.11 Unilateral primary osteoarthritis, right knee (principal)
CPT/HCPCS: 73700